=== PATIENT | male | born 1995 | race Caucasian/White ===

== ENCOUNTER 2022-07-09 08:42 | Emergency (ER) | payer SELFPAY ==
[~2022-07-09] VITALS: Ht 170.2 cm; Wt 80.0 kg
[2022-07-09] MEDS ORDERED: IBUPROFEN 400MG TABLET PO ONE (09:30)
[2022-07-09] MEDS: LIDOCAINE 5% PATCH TOP SCH ×3 (09:30→12:34)
[2022-07-09] MEDS ORDERED: ACETAMINOPHEN 325MG TABLET PO ONE (09:30)
[2022-07-09] MEDS ORDERED: KETOROLAC 60MG/2ML VIAL IM ONE (12:00)
[2022-07-09 12:34] VITALS: BP 135/91
[2022-07-09] MEDS ORDERED: ACET-2708 MT (13:28)
[2022-07-09] MEDS ORDERED: IBUP-2028 MT (13:28)
[2022-07-09] MEDS ORDERED: LIDO700A30 TP (13:28)
== END 2022-07-09 13:55 | disposition home or self-care (01) ==
LOC: ER 08:42
DX: M54.50 Low back pain, unspecified (principal)
CPT/HCPCS: 96372; 99285; J1885